=== PATIENT | female | born 1960 | race African-American/Black ===

== ENCOUNTER 2022-11-13 06:50 | Day surgery (SDC) | payer BC ==
[2022-11-08 16:30] VITALS: BMI 32.1
[2022-11-13] MEDS ORDERED: LIDOCAINE HCL/PF 2% SDV 5ML VIAL ONE (07:50)
[2022-11-13] MEDS ORDERED: PROPOFOL 100 ML ONE (07:51)
[2022-11-13 08:52] VITALS: RESP 16; TEMP 98.6
[2022-11-13 09:29] VITALS: BP 160/95; PULSE 54
== END 2022-11-13 09:15 | disposition home or self-care (01) ==
LOC: FASU-ENDO 06:50
PROVIDERS: ATTEND Internal Medicine Gastroenterology
PROC: 0DJD8ZZ Inspection of Lower Intestinal Tract, Via Natural or Artificial Opening Endoscopic (ICD-10-PCS; principal; 2022-11-13 08:19)
DX: Z12.11 Encounter for screening for malignant neoplasm of colon (principal); K57.30 Diverticulosis of large intestine without perforation or abscess without bleeding; K64.0 First degree hemorrhoids; Z86.010 Personal history of colon polyps; Z80.0 Family history of malignant neoplasm of digestive organs
CPT/HCPCS: 82962